=== PATIENT | male | born 2000 | race Caucasian/White ===

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

== ENCOUNTER → 2020-03-31 | Emergency (ER) | payer MEDICAID ==
[~2020-03-31] VITALS: Ht 172.7 cm; Wt 72.7 kg
[~2020-03-31] MED LIST: ATIVAN2 MG PO; COLACE 100100 MG/CAP PO; DEPAKOTE 250MG250 MG; MAG-G500 MG PO; MELATONIN1 MG PO; MIRALAX PA17 GM/Dose PO; TOFRANIL50 MG PO; VITAMIN B11000 MCG/M IM
[2020-03-31 23:06] VITALS: BP 124/84; TEMP 97.5
[2020-03-31 23:54] VITALS: PULSE 99
== END ==
LOC: COL.ER 23:01
DX: T42.1X1A Poisoning by iminostilbenes, accidental (unintentional), initial encounter (principal); T43.591A Poisoning by other antipsychotics and neuroleptics, accidental (unintentional), initial encounter; Z88.0 Allergy status to penicillin; Z88.8 Allergy status to other drugs, medicaments and biological substances

== ENCOUNTER 2020-07-26 11:33 | Emergency (ER) | payer MEDICAID ==
[~2020-07-26] VITALS: Ht 172.7 cm; Wt 68.2 kg
[2020-07-26 11:43] VITALS: TEMP 98.2
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
[2020-07-26 14:08] LABS: BASO % 0.7 % (0.0-2.0); EOS # 0.1 (0.0-0.7); GRAN # 3.8 (1.4-6.5); GRAN % 63.9 % (42.2-75.2); HEMATOCRIT 47.7 % (36.0-47.0); HEMOGLOBIN 16.2 g/dl (12.5-16.1); LYMPH # 1.6 (1.2-3.4); LYMPH % 27.4 % (20.0-51.0); MEAN CELL VOLUME 86 fl (80.0-95.0); MEAN CORPUSCULAR HEMOGLOBIN 29 pg (26.0-32.0); MEAN CORPUSCULAR HGB CONC 34 g/dl (33.0-37.0); MEAN PLATELET VOLUME 9.1 fl (7.4-10.4); MONO # 0.4 (0.1-0.6); MONO % 6.8 % (1.7-9.3); PLATELET COUNT 260 K/mm3 (130-400); RED BLOOD COUNT 5.54 M/mm3 (4.20-5.60); REDCELL DISTRIBUTION WIDTH-CV 12.9 % (11.5-14.5)
[2020-07-26 14:26] LABS: ALANINE AMINOTRANSFERASE 18 U/L (4-49); ALBUMIN 4.5 gm/dL (3.5-5.0); ALKALINE PHOSPHATASE 90 U/L (50-136); ANION GAP 7 mmol/L (7-16); AST,SGOT 26 U/L (15-37); BILIRUBIN,TOTAL 0.5 mg/dL (0.0-1.0); BLOOD UREA NITROGEN 5 mg/dL (9-20); C-REACTIVE PROTEIN 0.8 mg/dL (0.0-0.9); CALCIUM 10.1 mg/dL (8.4-10.2); CARBON DIOXIDE 30 mmol/L (22-30); CHLORIDE 102 mmol/L (98-107); CREATINE KINASE 139 U/L (55-170); GLUCOSE 83 mg/dL (74-106); POTASSIUM 3.8 mmol/L (3.4-5.0); SODIUM 140 mmol/L (137-145); TOTAL PROTEIN 7.7 gm/dL (6.4-8.2)
[2020-07-26 14:42] LABS: TROPONIN-I < 0.012 ng/mL (0.000-0.035)
[2020-07-26] MEDS ORDERED: MAGIC MOUTH PO (16:23)
[2020-07-26 16:36] VITALS: BP 124/86; PULSE 96
--- NOTE | 2020-07-26 17:32 | NUR ---
NELLY was contacted by deputy Denis who reported that there was nothing he could file a report on at this time. As these are not medically trained or certified individuals, "my hands are kind of tied." Deputy Denis reccomended NELLY filing with appropriate boards. Shilpa Price will file report with [facility] in the am. Mother contacted NELLY with concerns about her son being discharged without treatment for his oral inflammation. NELLY advocated for mother and ED physician was willing to prescribed Magic Mouthwash for patient. Please contact Evelyn Monday to notify her of PD findings as well as report going to [facility].
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
--- NOTE | 2020-07-29 14:10 | NUR ---
farmworker rice spoke with Leena Quach [phone], APS licensed master social worker, and provided additional information on patient's concerns. Worker arranged for ED associates, involved with patient during visit, to call her for an interview.
== END 2020-07-26 16:36 | disposition home or self-care (01) ==
LOC: COL.ER 11:33
PROVIDERS: Emergency Medicine
DX: K12.1 Other forms of stomatitis (principal); F84.0 Autistic disorder; G93.49 Other encephalopathy; Z88.0 Allergy status to penicillin; Z88.1 Allergy status to other antibiotic agents; Z88.4 Allergy status to anesthetic agent

== ENCOUNTER 2020-08-17 15:25 | Inpatient (IN) | payer MEDICAID ==
[2020-08-17] VITALS (111 sets, daily range): BP systolic 148; BP diastolic 74; PULSE 112; TEMP 97.5; O2SAT 75–100
[~2020-08-17] VITALS: Ht 170.2 cm; Wt 62.2 kg
[~2020-08-17 15:25] MED LIST changes: +MAGIC MOUTH PO
[2020-08-17 17:09] LABS: BASO % 0.4 % (0.0-2.0); EOS % 0.1 % (0-4.0); GRAN # 8.9 (1.4-6.5); GRAN % 78.4 % (42.2-75.2); HEMATOCRIT 46.4 % (36.0-47.0); HEMOGLOBIN 16.6 g/dl (12.5-16.1); LYMPH # 1.6 (1.2-3.4); LYMPH % 13.9 % (20.0-51.0); MEAN CELL VOLUME 82 fl (80.0-95.0); MEAN CORPUSCULAR HEMOGLOBIN 29 pg (26.0-32.0); MEAN CORPUSCULAR HGB CONC 36 g/dl (33.0-37.0); MEAN PLATELET VOLUME 9.7 fl (7.4-10.4); MONO # 0.8 (0.1-0.6); PLATELET COUNT 231 K/mm3 (130-400); RED BLOOD COUNT 5.67 M/mm3 (4.20-5.60); REDCELL DISTRIBUTION WIDTH-CV 12.4 % (11.5-14.5)
[2020-08-17 17:26] LABS: ALANINE AMINOTRANSFERASE 34 U/L (4-49); ALBUMIN 5.3 gm/dL (3.5-5.0); ALKALINE PHOSPHATASE 93 U/L (50-136); ANION GAP 20 mmol/L (7-16); AST,SGOT 91 U/L (15-37); BILIRUBIN,TOTAL 1.2 mg/dL (0.0-1.0); BLOOD UREA NITROGEN 21 mg/dL (9-20); CALCIUM 10.1 mg/dL (8.4-10.2); CARBON DIOXIDE 19 mmol/L (22-30); CHLORIDE 100 mmol/L (98-107); CREATININE, serum 1.18 (0.66-1.25); GLUCOSE 62 mg/dL (74-106); POTASSIUM 3.6 mmol/L (3.4-5.0); SALICYLATE 1.9 mg/dL; SODIUM 139 mmol/L (137-145); TOTAL PROTEIN 8.5 gm/dL (6.4-8.2)
[2020-08-17 17:27] LABS: ACETAMINOPHEN < 10 ug/mL (10-30); ALCOHOL(ethanol),MEDICAL < 10 mg/dL
[2020-08-17 17:32] LABS: CREATINE KINASE 2913 U/L (55-170)
[2020-08-17 17:58] LABS: TSH w REFLEX 0.674 uIU/mL (0.465-4.680)
--- NOTE | 2020-08-17 19:53 | NUR ---
Pt arrived to ICU room 6 via cart with Bridget ED RN, and security. Pt able to transfer from the cart to the ICU bed by himself. Unable to orient pt to room and call light system due to pt condition. Pt is resting in the bed but stirs easy to any stimulation. Lights turned off and extra nurses and security leave the room. Call light within reach.
[2020-08-18] VITALS (302 sets, daily range): BP systolic 110–150; BP diastolic 40–98; PULSE 67–116; TEMP 97.8–97.9; O2SAT 32–100
[2020-08-18 05:56] LABS: BASO % 0.7 % (0.0-2.0); EOS # 0.1 (0.0-0.7); EOS % 1.9 % (0-4.0); GRAN % 49.9 % (42.2-75.2); LYMPH # 2.3 (1.2-3.4); LYMPH % 38.4 % (20.0-51.0); MEAN CELL VOLUME 85 fl (80.0-95.0); MEAN CORPUSCULAR HGB CONC 35 g/dl (33.0-37.0); MEAN PLATELET VOLUME 9.8 fl (7.4-10.4); MONO # 0.5 (0.1-0.6); MONO % 8.9 % (1.7-9.3); PLATELET COUNT 145 K/mm3 (130-400); RED BLOOD COUNT 4.33 M/mm3 (4.20-5.60); REDCELL DISTRIBUTION WIDTH-CV 12.7 % (11.5-14.5)
[2020-08-18 05:57] LABS: HEMATOCRIT 36.6 % (36.0-47.0); HEMOGLOBIN 12.9 g/dl (12.5-16.1); MEAN CORPUSCULAR HEMOGLOBIN 30 pg (26.0-32.0)
[2020-08-18 06:06] LABS: CALCIUM 7.9 mg/dL (8.4-10.2); CREATININE, serum 0.63 (0.66-1.25); POTASSIUM 3.5 mmol/L (3.4-5.0)
--- NOTE | 2020-08-18 09:10 | NUR ---
No plan assessed yet. SW made contact with patient's biological mother Genevieve Leroy - from patients father. Mother reports that the patient resides at [facility] locally. Patient is reported to be Autisic and uses an Ipad to communicate. Patient has two pillowcase folder Yamile and Lorna . SW made contact with Allyson and she has agreed to bring the patient's Ipad to help with communication. Mother reports that patient can understand the face scale of pain and can answer by pointing to body parts and can read well. Patient is reported to have Dr. Wilson at [facility]. Medications are obtained through . Patient is reported to be fairly independent despite communication barriers. Patient is reported to be more agreessive lately, hair pulls, and hits. Mother is a [facility] [employer] SW located in [facility] and Father is a Hand [employer] in [place]. Fernandez diaz to follow for a plan.
--- NOTE | 2020-08-18 10:06 | NUR ---
Assessment completed, alert/ unable to assess orientation, patient is autistic and communication is difficult at this time, he does not appear to be in any acute pain or discomfort, currently resting quietly but does get agitation and becomes physically combative very abrubtly and without warning, CK >4k and I we are increasing IVF as he appears to be very dry, vital signs stable, heart RRR, I have spoke with his mom whom is his DPOA and discussed plan of care at this point in time, I am slowly titrating his Precedex gtt down as he does appear to be doing better than what was reported during this design sales consultant, I have called office to get an updated med list and waiting for call back, will continue to monitor patient closely back
--- NOTE | 2020-08-18 10:46 | NUR ---
First visit from the receiver setter. Patient was asleep, receiver setter prayed for patient while standing outside their door.
[2020-08-18] MEDS ORDERED: VITAMIN B12 781 TAB PO (11:13)
[2020-08-18] MEDS ORDERED: PRISTIQ 50 MG T50 MG PO (11:14)
[2020-08-18] MEDS ORDERED: ASPIRIN 32325 MG/TAB PO (11:18)
[2020-08-18] MEDS ORDERED: L-METHYLFOLATE7.5 MG PO (11:21)
[2020-08-18] MEDS ORDERED: OMEGA-3 1000 MG1 CAP (11:22)
[2020-08-18] MEDS ORDERED: OMEGA-3 FISH1000 MG PO (11:23)
[2020-08-18] MEDS ORDERED: VITAMIN C500 MG PO (11:24)
[2020-08-18] MEDS ORDERED: VITAMIN B-625 MG PO (11:24)
[2020-08-18] MEDS ORDERED: ATARAX 25MG25 MG/TAB PO (11:26)
--- NOTE | 2020-08-18 17:26 | NUR ---
RECEIVED REPORT FROM NOHEMY NORMAN. SEE GTT FLOWSHEET.
--- NOTE | 2020-08-18 17:35 | NUR ---
NOTIFIED DR BECKHAM ABOUT PT'S FSBS NOW. CHANGES IN IVF, SEE MAR.
--- NOTE | 2020-08-18 17:43 | NUR ---
Assessment completed, alert/ orientation is tough to as there is significant communication barrier, he does not appear to be in any acute pain or discomfort, his agitation is improved and I have been titrating his Precedex gtt down throughout the day, ordered him a general diet and he ate 100% of his meal and is taking PO without issues, FSBS changed to ac/hs and D5NS dsicontinued per orders, he is now having good urine output, rechecking CK this evening after having received aggressive IVF therapy, have spoke multiple times with his mother on the phone and discussed plan of care, bed alarm is set, will continue to monitor the patient
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
[2020-08-18 22:27] LABS: ARTERIAL BLD GAS O2 SATURATION 99.6 % (92-100); ARTERIAL BLD GAS TCO2 CT 22.5; ARTERIAL BLOOD GAS BASE EXCESS -1.4 (-2-2); ARTERIAL BLOOD GAS HCO3 21.5 meq/L (22-26); ARTERIAL BLOOD GAS PCO2 31.2 mmHg (35-45); ARTERIAL BLOOD GAS pH 7.46 (7.35-7.45)
[2020-08-19] VITALS (639 sets, daily range): BP systolic 95–125; BP diastolic 58–89; PULSE 53–77; TEMP 97.6–98.9; O2SAT 35–100
--- NOTE | 2020-08-19 05:00 | NUR ---
No sedation vacation performed as the pt has not been intubated for 24 hrs.
[2020-08-19 05:50] LABS: ARTERIAL BLOOD GAS pH 7.47 (7.35-7.45)
[2020-08-19 05:51] LABS: ARTERIAL BLD GAS O2 SATURATION 98.7 % (92-100); ARTERIAL BLOOD GAS HCO3 22.8 meq/L (22-26); ARTERIAL BLOOD GAS PCO2 31.8 mmHg (35-45)
--- NOTE | 2020-08-19 05:57 | NUR ---
PT HAS NOT BEEN INTUABTED FOR MORE THAN 24 HOURS THEREFORE NO WEANING TRIAL IS BEING DONE. PT IS ON CURRENT DOCUMENTED SETTINGS.
[2020-08-19 07:22] LABS: BASO % 0.6 % (0.0-2.0); EOS # 0.2 (0.0-0.7); EOS % 2.4 % (0-4.0); GRAN # 3.4 (1.4-6.5); GRAN % 51.8 % (42.2-75.2); HEMATOCRIT 37.8 % (36.0-47.0); HEMOGLOBIN 13.5 g/dl (12.5-16.1); LYMPH # 2.6 (1.2-3.4); LYMPH % 38.3 % (20.0-51.0); MEAN CELL VOLUME 83 fl (80.0-95.0); MEAN CORPUSCULAR HEMOGLOBIN 30 pg (26.0-32.0); MEAN CORPUSCULAR HGB CONC 36 g/dl (33.0-37.0); MEAN PLATELET VOLUME 9.8 fl (7.4-10.4); MONO # 0.4 (0.1-0.6); MONO % 6.6 % (1.7-9.3); PLATELET COUNT 147 K/mm3 (130-400); RED BLOOD COUNT 4.55 M/mm3 (4.20-5.60); REDCELL DISTRIBUTION WIDTH-CV 12.7 % (11.5-14.5)
[2020-08-19 07:30] LABS: ANION GAP 9 mmol/L (7-16); CARBON DIOXIDE 22 mmol/L (22-30); CHLORIDE 107 mmol/L (98-107); CREATININE, serum 0.49 (0.66-1.25); GLUCOSE 77 mg/dL (74-106); SODIUM 138 mmol/L (137-145)
--- NOTE | 2020-08-19 07:30 | NUR ---
REPORT RECEIVED FROM ANKITA RN
--- NOTE | 2020-08-19 07:38 | NUR ---
Bedside shift report given to NOHEMY Zepeda.
[2020-08-19 07:46] LABS: BLOOD UREA NITROGEN < 2 mg/dL (9-20)
[2020-08-19 07:48] LABS: CREATINE KINASE 2319 U/L (55-170); POTASSIUM 2.8 mmol/L (3.4-5.0)
--- NOTE | 2020-08-19 08:30 | NUR ---
DR. BARNHART IN ROOM. ORDERS RECEIVED.
--- NOTE | 2020-08-19 09:00 | NUR ---
MOTHER, CELIA CALLED FOR UPDATE AND TO VERIFY MEDICATION AND ALLERGIES.
--- NOTE | 2020-08-19 10:00 | NUR ---
DR. SNOW ROUNDS ON PATIENT. REQUESTS THAT RECORDS ARE OBTAINED FROM [facility] AND [facility].
--- NOTE | 2020-08-19 10:28 | NUR ---
Patient was intubated overnight and will remain intubated for today. Engineer Remote Control Diesel made contact with Thais at [facility] and requested copy of patient's Guardianship paperwork. Thais faxed a copy to the ICU and NELLY placed copy on patient's chart. Patient's parents, Evelyn and Pricila are designated. NELLY also faxed records requests to [facility] in [facility] (fax#[phone]) and [facility] (fax#[phone]). NOHEMY Zepeda advised that patient's mother plans to come to [place] to be with patient on Monday.
[2020-08-19 11:11] LABS: ARTERIAL BLD GAS O2 SATURATION 97.2 % (92-100); ARTERIAL BLD GAS TCO2 CT 24.7; ARTERIAL BLOOD GAS HCO3 23.5 meq/L (22-26); ARTERIAL BLOOD GAS PCO2 38.8 mmHg (35-45); ARTERIAL BLOOD GAS PO2 94.7 mmHg (80-100)
--- NOTE | 2020-08-19 13:00 | NUR ---
MOTHER CALLS FOR UPDATE AT THIS TIME.
[2020-08-19 13:28] LABS: MAGNESIUM 1.7 mg/dL (1.6-2.3); PHOSPHOROUS 3.2 mg/dL (2.5-4.5)
--- NOTE | 2020-08-19 14:30 | NUR ---
FATHER, EUSEBIO, CALLS FOR UPDATE AT THIS TIME.
--- NOTE | 2020-08-19 15:30 | NUR ---
DR. Toshia FABIAN HERE TO SEE PATIENT AND SPEAKS WITH MOTHER ON THE PHONE.
--- NOTE | 2020-08-19 17:30 | NUR ---
MOTHER CALLS FOR UPDATE AT THIS TIME.
--- NOTE | 2020-08-19 19:26 | NUR ---
REPORT GIVEN TO NOHEMY LUCIANO
--- NOTE | 2020-08-19 20:00 | NUR ---
Assessment complete. Pt is on the ventilator and is fighting. This nurse and Isaac RT, at bedside. Sedation increased and PRN ativan given at this time. Call light within reach.
[2020-08-20] VITALS (524 sets, daily range): BP systolic 97–125; BP diastolic 49–69; PULSE 64–91; TEMP 97.8–98.9; O2SAT 68–100
--- NOTE | 2020-08-20 02:45 | NUR ---
Pt began to meléndez the vent. Upon assessment there was water in the vent circuit. Water cleared from circuit and 2mg ativan IV given. Pt began to relax after ativan was administered. A few minutes later the pt began to meléndez the vent again. Upon entering the room to assess the pt was found to be seizing. Beryl button pushed. SONIA Hensley, notified of event. Additional 1mg ativan administered. Accu check found pt to have a low bg again.
[2020-08-20 03:17] LABS: BASO % 0.3 % (0.0-2.0); EOS # 0.2 (0.0-0.7); EOS % 1.6 % (0-4.0); GRAN # 7.2 (1.4-6.5); GRAN % 63.5 % (42.2-75.2); HEMATOCRIT 38.2 % (36.0-47.0); HEMOGLOBIN 13.2 g/dl (12.5-16.1); LYMPH # 3.2 (1.2-3.4); LYMPH % 28.4 % (20.0-51.0); MEAN CELL VOLUME 86 fl (80.0-95.0); MEAN CORPUSCULAR HEMOGLOBIN 30 pg (26.0-32.0); MEAN CORPUSCULAR HGB CONC 35 g/dl (33.0-37.0); MEAN PLATELET VOLUME 9.9 fl (7.4-10.4); MONO # 0.7 (0.1-0.6); MONO % 5.7 % (1.7-9.3); PLATELET COUNT 159 K/mm3 (130-400); RED BLOOD COUNT 4.43 M/mm3 (4.20-5.60); REDCELL DISTRIBUTION WIDTH-CV 13.1 % (11.5-14.5)
[2020-08-20 03:28] LABS: CERULOPLASMIN 23 mg/dL (20-60)
[2020-08-20 03:32] LABS: ALBUMIN 2.8 gm/dL (3.5-5.0); ANION GAP 5 mmol/L (7-16); CALCIUM 7.2 mg/dL (8.4-10.2); CARBON DIOXIDE 24 mmol/L (22-30); CHLORIDE 108 mmol/L (98-107); CREATINE KINASE 1106 U/L (55-170); CREATININE, serum 0.53 (0.66-1.25); GLUCOSE 97 mg/dL (74-106); PHOSPHOROUS 2.8 mg/dL (2.5-4.5); POTASSIUM 3.1 mmol/L (3.4-5.0); SODIUM 137 mmol/L (137-145)
[2020-08-20 03:36] LABS: BLOOD UREA NITROGEN < 2 mg/dL (9-20)
[2020-08-20 03:38] LABS: MAGNESIUM 1.7 mg/dL (1.6-2.3)
[2020-08-20 03:39] LABS: PHOSPHOROUS 2.8 mg/dL (2.5-4.5)
[2020-08-20 03:55] LABS: PROLACTIN 35.2 ng/mL (3.7-17.9)
--- NOTE | 2020-08-20 04:45 | NUR ---
Pt begins to wake up and fight the vent again. Called SONIA Hensley, and notified her of pt's increased LOC and current drip rates. Instructed to call Beryl for further recs. Called Beryl and spoke with Dr. Bailey. He states to begin to increase fentanyl gtt as needed up to a maximum of 400mcg/hr, which would max out the order parameters.
--- NOTE | 2020-08-20 05:00 | NUR ---
No sedation vacation performed this morning due to seizure activity this morning.
[2020-08-20 05:53] LABS: ARTERIAL BLD GAS O2 SATURATION 98.6 % (92-100); ARTERIAL BLD GAS TCO2 CT 26.1; ARTERIAL BLOOD GAS BASE EXCESS 1.7 (-2-2); ARTERIAL BLOOD GAS PCO2 35.3 mmHg (35-45); ARTERIAL BLOOD GAS pH 7.47 (7.35-7.45)
--- NOTE | 2020-08-20 07:28 | NUR ---
Bedside shift report given to NOHEMY Banks.
--- NOTE | 2020-08-20 09:41 | NUR ---
Blood Glucose sample taken from RT's arterial sample for ABG. Pt recieved 1/2 amp D50 this morning after fingersitck sample revealed 48mg/dL & PICC sample 113mg/dL
[2020-08-20 09:46] LABS: ARTERIAL BLD GAS O2 SATURATION 98.7 % (92-100); ARTERIAL BLD GAS TCO2 CT 25.5; ARTERIAL BLOOD GAS BASE EXCESS 1.4 (-2-2); ARTERIAL BLOOD GAS HCO3 24.5 meq/L (22-26); ARTERIAL BLOOD GAS PCO2 34.2 mmHg (35-45); ARTERIAL BLOOD GAS PO2 109.2 mmHg (80-100); ARTERIAL BLOOD GAS pH 7.47 (7.35-7.45)
--- NOTE | 2020-08-20 17:00 | NUR ---
At current sedation, pt able to occasionally wake up, move all extremities and move hands in upward fashion towards head - therefore vacation sedation not performed
[2020-08-20 18:30] LABS: INSULIN 23 uIU/mL (2-23)
[2020-08-21] VITALS (838 sets, daily range): BP systolic 97–117; BP diastolic 45–65; PULSE 56–110; TEMP 98.3–99.4; O2SAT 64–100
[2020-08-21 05:09] LABS: C-PEPTIDE,SERUM 4.02 ng/mL (0.80-3.90)
[2020-08-21 05:35] LABS: ARTERIAL BLD GAS O2 SATURATION 96.3 % (92-100); ARTERIAL BLD GAS TCO2 CT 27.8; ARTERIAL BLOOD GAS BASE EXCESS -0.6 (-2-2); ARTERIAL BLOOD GAS HCO3 26.2 meq/L (22-26); ARTERIAL BLOOD GAS PCO2 51.3 mmHg (35-45); ARTERIAL BLOOD GAS PO2 89.4 mmHg (80-100); ARTERIAL BLOOD GAS pH 7.33 (7.35-7.45)
[2020-08-21 06:18] LABS: HEMATOCRIT 41.3 % (36.0-47.0); HEMOGLOBIN 13.8 g/dl (12.5-16.1); MEAN CELL VOLUME 90 fl (80.0-95.0); MEAN CORPUSCULAR HEMOGLOBIN 30 pg (26.0-32.0); MEAN CORPUSCULAR HGB CONC 33 g/dl (33.0-37.0); PLATELET COUNT 164 K/mm3 (130-400); REDCELL DISTRIBUTION WIDTH-CV 13.5 % (11.5-14.5)
[2020-08-21 06:25] LABS: ALANINE AMINOTRANSFERASE 25 U/L (4-49); ALBUMIN 3.4 gm/dL (3.5-5.0); ALKALINE PHOSPHATASE 63 U/L (50-136); ANION GAP 7 mmol/L (7-16); AST,SGOT 29 U/L (15-37); BILIRUBIN,TOTAL < 0.1 mg/dL (0.0-1.0); BLOOD UREA NITROGEN 5 mg/dL (9-20); CALCIUM 8.6 mg/dL (8.4-10.2); CARBON DIOXIDE 27 mmol/L (22-30); CHLORIDE 106 mmol/L (98-107); CREATININE, serum 0.46 (0.66-1.25); GLUCOSE 189 mg/dL (74-106); MAGNESIUM 2.1 mg/dL (1.6-2.3); PHOSPHOROUS 4.8 mg/dL (2.5-4.5); POTASSIUM 4.4 mmol/L (3.4-5.0); SODIUM 140 mmol/L (137-145); TOTAL PROTEIN 6.7 gm/dL (6.4-8.2)
--- NOTE | 2020-08-21 07:15 | NUR ---
Report received from NOHEMY Molina. Patient care received.
[2020-08-21 07:52] LABS: BAND 25 % (0-10); LYMPHOCYTE 6 % (20.0-51.0); NEUTROPHILS 67 % (42.0-75.2); PLATELET ESTIMATE NORMAL (NORMAL)
--- NOTE | 2020-08-21 10:32 | NUR ---
Patient is still intubated at this time and mother, Evelyn is at bedside. NELLY introduced herself to Evelyn, who gave SW information about patient's history. Evelyn advised that at this time she is agreeable to have patient return to [facility] when he is medically cleared for discharge. Evelyn reports that she is also interested in [facility] in [place], [place] but believes they have a waitlist. NELLY contacted admissions at [facility] and left a message to inquire about the admissions process for Evelyn, who also reports that patient has been to [facility] as a minor. NELLY will continue to follow.
--- NOTE | 2020-08-21 15:00 | NUR ---
Patient's left arm noticibly more swollen than the right side. Hand is very puffy and firm to the touch and slightly warm. IV that was placed in this hand was removed; nothing running throught the IV at this time. Hospitalist notfied; ordered a venous duplex. Will continue to monitor.
--- NOTE | 2020-08-21 18:27 | NUR ---
SEDATION VACATION NOT PERFORMED PATIENT BECOMES VERY AGITATED; ATTEMPTS TO SIT UP; AND PULLING FORCEFULLY AT RESTRAINTS WITH SEDATION DECREASE.
--- NOTE | 2020-08-21 19:15 | NUR ---
Received report from NOHEMY Lara. Patient resting quietly in bed. Remains on ventilator; tolerating well. Occasionally stirs spontaneously but quickly falls back asleep. All vitals within normal limits. Drips and vent settings confirmed at bedside. Bed in lowest position, all alarms on. No further needs noted at this time.
--- NOTE | 2020-08-21 20:04 | NUR ---
During oral care paient became agitated; opened eyes and attempting to sit up. Lower extremities and hands shaking but also able to be moved independently on the bed. Dr. Bundy notified of shaking of extremities with agitation. No further orders at this time.
--- NOTE | 2020-08-21 23:15 | NUR ---
Contacted hospitalist, Mayra, regarding patient's BG > 200. Received orders to discontinue D10 fluids. To reassess blood sugar at 0400.
[2020-08-22] VITALS (727 sets, daily range): BP systolic 120–142; BP diastolic 43–84; PULSE 79–99; TEMP 98.1–99.3; O2SAT 83–100
[2020-08-22 04:22] LABS: BASO % 0.1 % (0.0-2.0); GRAN # 8.7 (1.4-6.5); GRAN % 88.6 % (42.2-75.2); LYMPH # 0.5 (1.2-3.4); LYMPH % 4.8 % (20.0-51.0); MEAN CELL VOLUME 88 fl (80.0-95.0); MEAN CORPUSCULAR HGB CONC 34 g/dl (33.0-37.0); MEAN PLATELET VOLUME 10.6 fl (7.4-10.4); MONO # 0.6 (0.1-0.6); MONO % 5.7 % (1.7-9.3); PLATELET COUNT 147 K/mm3 (130-400); RED BLOOD COUNT 3.91 M/mm3 (4.20-5.60); REDCELL DISTRIBUTION WIDTH-CV 13.6 % (11.5-14.5)
[2020-08-22 04:25] LABS: HEMATOCRIT 34.5 % (36.0-47.0); HEMOGLOBIN 11.6 g/dl (12.5-16.1); MEAN CORPUSCULAR HEMOGLOBIN 30 pg (26.0-32.0)
[2020-08-22 04:33] LABS: ALANINE AMINOTRANSFERASE 22 U/L (4-49); ALBUMIN 3.1 gm/dL (3.5-5.0); ALKALINE PHOSPHATASE 62 U/L (50-136); ANION GAP 5 mmol/L (7-16); AST,SGOT 25 U/L (15-37); BILIRUBIN,TOTAL < 0.1 mg/dL (0.0-1.0); BLOOD UREA NITROGEN 7 mg/dL (9-20); CALCIUM 7.9 mg/dL (8.4-10.2); CARBON DIOXIDE 27 mmol/L (22-30); CHLORIDE 107 mmol/L (98-107); CREATININE, serum 0.53 (0.66-1.25); GLUCOSE 145 mg/dL (74-106); PHOSPHOROUS 3.3 mg/dL (2.5-4.5); POTASSIUM 3.8 mmol/L (3.4-5.0); SODIUM 139 mmol/L (137-145); TOTAL PROTEIN 6.5 gm/dL (6.4-8.2); TRIGLYCERIDE 85 mg/dL
[2020-08-22 06:05] LABS: ARTERIAL BLD GAS O2 SATURATION 96.5 % (92-100); ARTERIAL BLD GAS TCO2 CT 23.1; ARTERIAL BLOOD GAS BASE EXCESS -1.8 (-2-2); ARTERIAL BLOOD GAS PCO2 34.5 mmHg (35-45); ARTERIAL BLOOD GAS PO2 85.3 mmHg (80-100); ARTERIAL BLOOD GAS pH 7.42 (7.35-7.45)
--- NOTE | 2020-08-22 15:00 | NUR ---
Patient restless in bed; Kicking off blankets and attempts to sit fully upright while pulling on restraints. Sat with patient to attempt to re-orient and calm down. Sedation increased. Will continue to monitor.
--- NOTE | 2020-08-22 16:50 | NUR ---
Dr. Javed at bedside to see patient. Mother at bedside. Discussed plan of care with mother. All questions and concerns addressed at this time.
--- NOTE | 2020-08-22 18:35 | NUR ---
Tolerating ventilator well; no concerns at this time.
[2020-08-23] VITALS (632 sets, daily range): BP systolic 109–164; BP diastolic 59–96; PULSE 77–105; TEMP 97.8–99.9; O2SAT 88–100
--- NOTE | 2020-08-23 05:00 | NUR ---
PATIENT RESTLESS ON CURRENT SEDATION. NO TITRATIONS AT THIS TIME.
[2020-08-23 05:26] LABS: BASO % 0.1 % (0.0-2.0); GRAN # 8.8 (1.4-6.5); GRAN % 84.7 % (42.2-75.2); HEMOGLOBIN 11.4 g/dl (12.5-16.1); LYMPH # 0.9 (1.2-3.4); LYMPH % 8.6 % (20.0-51.0); MEAN CELL VOLUME 88 fl (80.0-95.0); MEAN CORPUSCULAR HEMOGLOBIN 30 pg (26.0-32.0); MEAN CORPUSCULAR HGB CONC 34 g/dl (33.0-37.0); MEAN PLATELET VOLUME 10.6 fl (7.4-10.4); MONO # 0.6 (0.1-0.6); MONO % 5.5 % (1.7-9.3); PLATELET COUNT 182 K/mm3 (130-400); REDCELL DISTRIBUTION WIDTH-CV 13.7 % (11.5-14.5)
[2020-08-23 05:37] LABS: ALANINE AMINOTRANSFERASE 22 U/L (4-49); ALBUMIN 3.1 gm/dL (3.5-5.0); ALKALINE PHOSPHATASE 63 U/L (50-136); ANION GAP 7 mmol/L (7-16); AST,SGOT 22 U/L (15-37); BILIRUBIN,TOTAL < 0.1 mg/dL (0.0-1.0); BLOOD UREA NITROGEN 9 mg/dL (9-20); CARBON DIOXIDE 27 mmol/L (22-30); CHLORIDE 103 mmol/L (98-107); CREATININE, serum 0.51 (0.66-1.25); GLUCOSE 143 mg/dL (74-106); MAGNESIUM 2.2 mg/dL (1.6-2.3); PHOSPHOROUS 2.4 mg/dL (2.5-4.5); POTASSIUM 3.8 mmol/L (3.4-5.0); SODIUM 138 mmol/L (137-145); TOTAL PROTEIN 6.9 gm/dL (6.4-8.2)
[2020-08-23 05:47] LABS: HEMATOCRIT 33.4 % (36.0-47.0)
[2020-08-23 07:37] LABS: ARTERIAL BLD GAS O2 SATURATION 97.5 % (92-100); ARTERIAL BLOOD GAS BASE EXCESS 3.7 (-2-2); ARTERIAL BLOOD GAS HCO3 27.7 meq/L (22-26); ARTERIAL BLOOD GAS PO2 92.6 mmHg (80-100); ARTERIAL BLOOD GAS pH 7.46 (7.35-7.45)
--- NOTE | 2020-08-23 16:30 | NUR ---
Patient restless in bed; attempting to sit up and pulling hands up towards mouth. Attempted to calm down patient by re-orienting; not effective. Increased sedation at this time.
--- NOTE | 2020-08-23 19:37 | NUR ---
Sedation vacation not performed as patient restless and attempting to sit up and reaching up towards ET tube while currenlty sedated.
[2020-08-24] VITALS (540 sets, daily range): BP systolic 100–144; BP diastolic 62–97; PULSE 60–93; TEMP 97.5–101; O2SAT 92–100
--- NOTE | 2020-08-24 05:00 | NUR ---
PATIENT SEDATION AT SHIFT CHANGE WAS SUFFICIENT FOR NEURO EXAM. PT WAS SITTING UP AND PURPOSEFULLY REACHING FOR TUBE. HR WAS ALSO IN 130-140S SO I DID NOT DECREASE SEDATION FURTHER.
[2020-08-24 05:57] LABS: ARTERIAL BLD GAS TCO2 CT 31.6; ARTERIAL BLOOD GAS BASE EXCESS 5.9 (-2-2); ARTERIAL BLOOD GAS HCO3 30.3 meq/L (22-26); ARTERIAL BLOOD GAS PCO2 43.4 mmHg (35-45); ARTERIAL BLOOD GAS pH 7.46 (7.35-7.45)
[2020-08-24 06:20] LABS: HEMOGLOBIN 11.3 g/dl (12.5-16.1); MEAN CELL VOLUME 87 fl (80.0-95.0); MEAN CORPUSCULAR HEMOGLOBIN 30 pg (26.0-32.0); MEAN CORPUSCULAR HGB CONC 34 g/dl (33.0-37.0); MEAN PLATELET VOLUME 10.3 fl (7.4-10.4); PLATELET COUNT 169 K/mm3 (130-400); RED BLOOD COUNT 3.82 M/mm3 (4.20-5.60); REDCELL DISTRIBUTION WIDTH-CV 13.6 % (11.5-14.5)
[2020-08-24 06:31] LABS: ALANINE AMINOTRANSFERASE 26 U/L (4-49); ALBUMIN 3.1 gm/dL (3.5-5.0); ALKALINE PHOSPHATASE 66 U/L (50-136); ANION GAP 7 mmol/L (7-16); AST,SGOT 25 U/L (15-37); BILIRUBIN,TOTAL < 0.1 mg/dL (0.0-1.0); BLOOD UREA NITROGEN 14 mg/dL (9-20); CALCIUM 7.7 mg/dL (8.4-10.2); CARBON DIOXIDE 31 mmol/L (22-30); CHLORIDE 99 mmol/L (98-107); CREATININE, serum 0.43 (0.66-1.25); GLUCOSE 132 mg/dL (74-106); MAGNESIUM 2.4 mg/dL (1.6-2.3); POTASSIUM 3.9 mmol/L (3.4-5.0); SODIUM 136 mmol/L (137-145); TOTAL PROTEIN 7.2 gm/dL (6.4-8.2)
[2020-08-24 06:35] LABS: HEMATOCRIT 33.4 % (36.0-47.0)
--- NOTE | 2020-08-24 08:06 | NUR ---
AROUND 1999 PT BECAME AGITATED AND WAS ATTEMPTING TO SIT UP IN BED AND REACH FOR ETT. HR WAS SUSTAINED IN 130-140S AND PT WAS UNCONSOLABLE. INCREASED SEDATION UNTIL PT RESTED WITHOUT SIGNS OF ANXIETY/AGITATION. HR REMAINED IN 60S AFTER SEDATION WAS INCREASED SO SEDATION WAS SLOWLY TITRATED OFF TOLERATED. PRECEDEX ORDERED FOR ANXIETY AND TO REDUCE VOLUME OF FENTANYL NEEDED ONCE PT HR IS INCREASED CAN BE STARTED. LIANNE DOCTOR RECOMMENDED TO LEAVE FENTANYL AT 200MCG/HR WITH PRECEDEX FOR POSSIBLE ANALGESIC EFFECTS. AM REPORT GIVEN TO TYLER AND CARE RELINQUISHED AT THIS TIME.
[2020-08-24 08:27] LABS: BAND 10 % (0-10); NEUTROPHILS 73 % (42.0-75.2)
[2020-08-24 08:28] LABS: LYMPHOCYTE 15 % (20.0-51.0); PLATELET ESTIMATE NORMAL (NORMAL)
--- NOTE | 2020-08-24 13:41 | NUR ---
Head Swamper attended clinical rounds with the team. Patient remains intubated at this time. Dr. Bundy discussed transferring patient with Hospitalist. SW will continue to follow.
--- NOTE | 2020-08-24 19:09 | NUR ---
Report called to NOHEMY Wasserman at [facility]. Pt's mother called and updated on [facility] acceptance
--- NOTE | 2020-08-24 20:00 | NUR ---
Assessment complete. Pt is on the ventiltor. Spoke with mom on the phone; all questions answered. Pt repositioned in bed. CHARU Vail, working on arranging transportation to [facility]. Call light within reach.
--- NOTE | 2020-08-24 21:57 | NUR ---
Pt left via EMS at 2152. Called mother to update her and called [facility] transfer line and receiving nurse to update them.
== END 2020-08-24 23:09 | disposition short-term general hospital (02) | DRG 57 ==
LOC: COL.ER 15:25 → ICU 18:22 → COL.ER 18:22 → ICU 18:22
PROVIDERS: Emergency Medicine; Internal Medicine Pulmonary Disease; Nurse Practitioner Family; Physician Assistant; Psychiatry & Neurology Neurology; Student in an Organized Health Care Education/Training Program; ADMIT Student in an Organized Health Care Education/Training Program
PROC: 0BH17EZ Insertion of Endotracheal Airway into Trachea, Via Natural or Artificial Opening (ICD-10-PCS; 2020-08-18)
PROC: 5A1945Z Respiratory Ventilation, 24-96 Consecutive Hours (ICD-10-PCS; 2020-08-18)
PROC: 02HV33Z Insertion of Infusion Device into Superior Vena Cava, Percutaneous Approach (ICD-10-PCS; principal; 2020-08-19)
DX: G25.89 Other specified extrapyramidal and movement disorders (principal); M62.82 Rhabdomyolysis; I02.9 Rheumatic chorea without heart involvement; G93.49 Other encephalopathy; E87.3 Alkalosis; E72.12 Methylenetetrahydrofolate reductase deficiency; R45.1 Restlessness and agitation; E55.9 Vitamin D deficiency, unspecified; E87.6 Hypokalemia; E78.5 Hyperlipidemia, unspecified; F95.9 Tic disorder, unspecified; G40.909 Epilepsy, unspecified, not intractable, without status epilepticus; E16.2 Hypoglycemia, unspecified; I09.9 Rheumatic heart disease, unspecified; D52.9 Folate deficiency anemia, unspecified; R44.1 Visual hallucinations; G47.9 Sleep disorder, unspecified; Z86.16 Personal history of COVID-19
CPT/HCPCS: 99223-AI; 99233-AI; C1751; C9254; J0692; J1200; J1569; J1630; J1644; J2060; J2250; J2704; J2930; J3010; J3480; J7030; J7042; J7050; Q9967

== ENCOUNTER → 2020-08-19 | Outpatient (REF) ==
[~2020-08-19] MED LIST changes: +ASPIRIN 32325 MG/TA1 PO; +ASPIRIN 32325 MG/TAB PO; +ATARAX 25MG25 MG/TAB PO; +ATIVAN 1MG T1 MG/TAB PO; +D3-5050000 IU PO; +DEPAKOTE500 MG PO; +HALDOL 5MG T5 MG/TAB PO; +KLONOPIN 0.5MG0.5 MG PO; +L-METHYLFOLATE7.5 MG PO; +OMEGA-3 1000 MG1 CAP; +OMEGA-3 FISH1000 MG PO; +PRISTIQ 50 MG T50 MG PO; +SEROQUEL 2525 MG/TAB PO; +STOOL SOFTENER100 M2 PO; +VALIUM 5MG T5 MG/TAB PO; +VITAMIN B-625 MG PO; +VITAMIN B12 781 TAB PO; +VITAMIN C500 MG PO
[2020-08-19 06:20] LABS: HIV 1/2 Antibodies Non-Reactive; HIV-1p24 Antigen Non-Reactive
[2020-08-19 17:56] LABS: HEPATITIS B SURFACE ANTIBODY <2.0 (()); HEPATITIS C VIRUS ANTIBODY Negative (Negative)
== END ==
LOC: COL.LAB 05:08
PROVIDERS: Physician Assistant
DX: Z01.89 Encounter for other specified special examinations (principal)

== ENCOUNTER 2020-09-26 10:55 | Emergency (ER) | payer MEDICAID ==
[~2020-09-26] VITALS: Ht 172.7 cm; Wt 59.1 kg
[2020-09-26 10:55] VITALS: TEMP 98.8
[~2020-09-26 10:55] MED LIST changes: -ASPIRIN 32325 MG/TA1 PO; -ATIVAN 1MG T1 MG/TAB PO; -D3-5050000 IU PO; -DEPAKOTE500 MG PO; -HALDOL 5MG T5 MG/TAB PO; -KLONOPIN 0.5MG0.5 MG PO; -SEROQUEL 2525 MG/TAB PO; -STOOL SOFTENER100 M2 PO; -VALIUM 5MG T5 MG/TAB PO
[2020-09-26 12:09] LABS: COLLECTION METHOD CLEAN CATCH
[2020-09-26 12:14] LABS: BASO % 0.4 % (0.0-2.0); EOS # 0.1 (0.0-0.7); EOS % 1.4 % (0-4.0); GRAN # 2.3 (1.4-6.5); GRAN % 45.9 % (42.2-75.2); HEMATOCRIT 45.2 % (36.0-47.0); HEMOGLOBIN 15.7 g/dl (12.5-16.1); LYMPH # 2.2 (1.2-3.4); LYMPH % 44.4 % (20.0-51.0); MEAN CELL VOLUME 88 fl (80.0-95.0); MEAN CORPUSCULAR HEMOGLOBIN 31 pg (26.0-32.0); MEAN CORPUSCULAR HGB CONC 35 g/dl (33.0-37.0); MEAN PLATELET VOLUME 9.4 fl (7.4-10.4); MONO # 0.4 (0.1-0.6); MONO % 7.7 % (1.7-9.3); PLATELET COUNT 243 K/mm3 (130-400); RED BLOOD COUNT 5.12 M/mm3 (4.20-5.60); REDCELL DISTRIBUTION WIDTH-CV 14.8 % (11.5-14.5)
[2020-09-26 12:19] LABS: MUCOUS Present /lpf; PH 5 (5-8); SQUAMOUS EPITHELIAL 0-2 /hpf; URINE APPEARANCE Hazy; URINE BACTERIA Rare /hpf; URINE BILIRUBIN Negative (NEGATIVE); URINE BLOOD Negative (NEGATIVE); URINE COLOR Yellow; URINE GLUCOSE Negative (NEGATIVE); URINE KETONE 2+ (NEGATIVE); URINE LEUKOCYTE ESTERASE Negative (NEGATIVE); URINE NITRATE Negative (NEGATIVE); URINE PROTEIN(semi-quant) 1+ (NEGATIVE); URINE RBC 0-2 /hpf
[2020-09-26 12:23] LABS: ALANINE AMINOTRANSFERASE 24 U/L (4-49); ALBUMIN 4.7 gm/dL (3.5-5.0); ALKALINE PHOSPHATASE 92 U/L (50-136); ANION GAP 15 mmol/L (7-16); AST,SGOT 38 U/L (15-37); BILIRUBIN,TOTAL 0.4 mg/dL (0.0-1.0); BLOOD UREA NITROGEN 4 mg/dL (9-20); CALCIUM 10.2 mg/dL (8.4-10.2); CARBON DIOXIDE 22 mmol/L (22-30); CHLORIDE 102 mmol/L (98-107); CREATINE KINASE 147 U/L (55-170); CREATININE, serum 0.58 (0.66-1.25); GLUCOSE 76 mg/dL (74-106); POTASSIUM 3.9 mmol/L (3.4-5.0); SODIUM 139 mmol/L (137-145); TOTAL PROTEIN 8.1 gm/dL (6.4-8.2)
[2020-09-26 12:24] LABS: C-REACTIVE PROTEIN < 0.5 mg/dL (0.0-0.9)
[2020-09-26 15:24] LABS: STREP SCREEN NEGATIVE
[2020-09-26] MEDS ORDERED: KLONOPIN 0.5MG0.5 MG PO (16:16)
[2020-09-26] MEDS ORDERED: DEPAKOTE500 MG PO (16:18)
[2020-09-26] MEDS ORDERED: VALIUM 5MG T5 MG/TAB PO (16:25)
[2020-09-26] MEDS ORDERED: D3-5050000 IU PO (16:26)
[2020-09-26] MEDS ORDERED: STOOL SOFTENER100 M2 PO (16:27)
[2020-09-26] MEDS ORDERED: MIRALAX PA17 GM/Dose PO (16:31)
[2020-09-26] MEDS ORDERED: VITAMIN C500 MG PO (16:36)
[2020-09-26] MEDS ORDERED: L-METHYLFOLATE7.5 MG PO (16:37)
[2020-09-26] MEDS ORDERED: ASPIRIN 32325 MG/TA1 PO (16:37)
[2020-09-26 16:44] VITALS: BP 132/72; PULSE 78
== END 2020-09-26 16:44 | disposition home or self-care (01) ==
LOC: COL.ER 10:55
PROVIDERS: Nurse Practitioner
DX: F84.0 Autistic disorder (principal); Z79.899 Other long term (current) drug therapy
CPT/HCPCS: 99214; J7030

== ENCOUNTER 2020-10-07 12:07 | Emergency (ER) | payer MEDICAID ==
[~2020-10-07] VITALS: Ht 172.7 cm; Wt 54.5 kg
[2020-10-07 12:07] VITALS: TEMP 98.3
[~2020-10-07 12:07] MED LIST changes: +ASPIRIN 32325 MG/TA1 PO; +D3-5050000 IU PO; +DEPAKOTE500 MG PO; +KLONOPIN 0.5MG0.5 MG PO; +STOOL SOFTENER100 M2 PO; +VALIUM 5MG T5 MG/TAB PO
[2020-10-07 13:02] LABS: BASO % 0.7 % (0.0-2.0); EOS % 0.7 % (0-4.0); GRAN # 1.8 (1.4-6.5); GRAN % 39.5 % (42.2-75.2); HEMATOCRIT 44.5 % (36.0-47.0); HEMOGLOBIN 15.2 g/dl (12.5-16.1); LYMPH # 2.2 (1.2-3.4); LYMPH % 50.5 % (20.0-51.0); MEAN CELL VOLUME 90 fl (80.0-95.0); MEAN CORPUSCULAR HEMOGLOBIN 31 pg (26.0-32.0); MEAN CORPUSCULAR HGB CONC 34 g/dl (33.0-37.0); MEAN PLATELET VOLUME 9.4 fl (7.4-10.4); MONO # 0.4 (0.1-0.6); MONO % 8.4 % (1.7-9.3); PLATELET COUNT 257 K/mm3 (130-400); RED BLOOD COUNT 4.96 M/mm3 (4.20-5.60); REDCELL DISTRIBUTION WIDTH-CV 13.8 % (11.5-14.5)
[2020-10-07 13:05] LABS: COLLECTION METHOD CLEAN CATCH
[2020-10-07 13:21] LABS: ALBUMIN 4.5 gm/dL (3.5-5.0); BILIRUBIN,TOTAL 0.4 mg/dL (0.0-1.0); CREATININE, serum 0.66 (0.66-1.25); POTASSIUM 4.1 mmol/L (3.4-5.0); TOTAL PROTEIN 7.7 gm/dL (6.4-8.2)
[2020-10-07 13:23] LABS: MUCOUS Present /lpf; PH 6 (5-8); SQUAMOUS EPITHELIAL None Seen /hpf; URINE APPEARANCE Hazy; URINE BACTERIA None Seen /hpf; URINE BILIRUBIN Negative (NEGATIVE); URINE BLOOD Negative (NEGATIVE); URINE COLOR Yellow; URINE GLUCOSE Negative (NEGATIVE); URINE KETONE Trace (NEGATIVE); URINE LEUKOCYTE ESTERASE Negative (NEGATIVE); URINE NITRATE Negative (NEGATIVE); URINE PROTEIN(semi-quant) 1+ (NEGATIVE); URINE RBC 0-2 /hpf; URINE UROBILINOGEN Negative (NEGATIVE)
[2020-10-07 13:40] LABS: VALPROIC ACID (DEPAKENE) 73.1 ug/mL (50.0-100.0)
[2020-10-07 15:01] VITALS: BP 116/65
[2020-10-07 15:24] VITALS: PULSE 97
== END 2020-10-07 15:27 | disposition home or self-care (01) ==
LOC: COL.ER 12:07
PROVIDERS: Nurse Practitioner Primary Care
DX: R45.1 Restlessness and agitation (principal); F84.0 Autistic disorder; R44.1 Visual hallucinations; Z86.16 Personal history of COVID-19; Z79.899 Other long term (current) drug therapy
CPT/HCPCS: J1200; J1630; J2060

== ENCOUNTER 2020-10-09 14:19 | Emergency (ER) | payer MEDICAID ==
[~2020-10-09] VITALS: Ht 177.8 cm; Wt 63.6 kg
[2020-10-09 14:20] VITALS: TEMP 98
[2020-10-09 16:04] LABS: BASO % 0.7 % (0.0-2.0); EOS % 0.7 % (0-4.0); GRAN # 2.9 (1.4-6.5); GRAN % 51.3 % (42.2-75.2); HEMATOCRIT 44.6 % (36.0-47.0); HEMOGLOBIN 15.1 g/dl (12.5-16.1); LYMPH # 2.2 (1.2-3.4); LYMPH % 38.5 % (20.0-51.0); MEAN CELL VOLUME 90 fl (80.0-95.0); MEAN CORPUSCULAR HEMOGLOBIN 30 pg (26.0-32.0); MEAN CORPUSCULAR HGB CONC 34 g/dl (33.0-37.0); MEAN PLATELET VOLUME 9.2 fl (7.4-10.4); MONO # 0.5 (0.1-0.6); MONO % 8.6 % (1.7-9.3); PLATELET COUNT 236 K/mm3 (130-400); RED BLOOD COUNT 4.96 M/mm3 (4.20-5.60); REDCELL DISTRIBUTION WIDTH-CV 13.6 % (11.5-14.5)
[2020-10-09 16:06] LABS: ACETAMINOPHEN < 10 ug/mL (10-30); ALANINE AMINOTRANSFERASE 20 U/L (4-49); ALBUMIN 4.7 gm/dL (3.5-5.0); ALCOHOL(ethanol),MEDICAL < 10 mg/dL; ALKALINE PHOSPHATASE 75 U/L (50-136); ANION GAP 8 mmol/L (7-16); AST,SGOT 44 U/L (15-37); BILIRUBIN,TOTAL 0.2 mg/dL (0.0-1.0); BLOOD UREA NITROGEN 9 mg/dL (9-20); C-REACTIVE PROTEIN < 0.5 mg/dL (0.0-0.9); CALCIUM 10.3 mg/dL (8.4-10.2); CARBON DIOXIDE 30 mmol/L (22-30); CHLORIDE 102 mmol/L (98-107); CREATININE, serum 0.64 (0.66-1.25); GLUCOSE 80 mg/dL (74-106); POTASSIUM 3.9 mmol/L (3.4-5.0); SALICYLATE 2.4 mg/dL; SODIUM 140 mmol/L (137-145); TOTAL PROTEIN 7.8 gm/dL (6.4-8.2)
--- NOTE | 2020-10-09 16:20 | NUR ---
Lathe Operator responded to consult in the ED for patient who is here in police custody, brought in from [facility]. NELLY collaborated with [facility] who advised declined to screen patient as he is I/DD and they do not have staff who are qualified to screen I/DD. NELLY contacted Madeleine, Shipping Track Supervisor at the local CD[employer] ([employer]) who advised she has attempted to contact Danyell Armenta, Bike Shop Manager for [place] with no sucess. NELLY contacted Danyell (ph#[phone]) who advised that Thais, Advertising Strategist was on her way to lemon picker patient so he can return to [facility] as there is no reason to admit him to the hospital. NELLY spoke with [facility] who confirmed Thais is in route as she notified [facility] dispatch she was on her way. NELLY contacted patient's father, Pricila Guthrei (ph#[phone]) to notify him that patient would be returning to [facility]. Pricila advised that patient is on the waitlist for a longterm in [place] but that it could take months for him to get in. NELLY updated the RN and ED Physician.
--- NOTE | 2020-10-09 16:50 | NUR ---
Precision Machinist received a phone call from patient's mother, Evelyn who advised she is working her hardest to keep patient out of the ED but feels no one is listening to her. Evelyn advised that patient needs a valid psych screening to be completed. advised Evelyn that [facility] declined to do the screening as patient is I/DD. Evelyn is frustrated with this and stated she will be contacting [facility]. Evelyn reported that patient was just released from [facility] on 09/17/20 and stayed with her for a few days before returning to [facility]. Evelyn is working with Parag, Neon Sign Installer at [facility] to get patient into a prison in [place], but the home will not be ready for residents to move in for another 90 days. Evelyn advised she is also working with Case Management at [facility] to find placement in a Psychiatric Residential Treatment Facility and advised that patient was screened for this a couple weeks ago. Evelyn advised they should have received a response by now, but haven't. Evelyn had to end the call suddenly as she was receiving a phone call from the ED.
[2020-10-09 17:19] VITALS: BP 120/75; PULSE 104
== END 2020-10-09 17:18 | disposition home or self-care (01) ==
LOC: COL.ER 14:19
PROVIDERS: Nurse Practitioner
DX: F91.8 Other conduct disorders (principal); R45.1 Restlessness and agitation; F84.0 Autistic disorder
CPT/HCPCS: J1630; J2060

== ENCOUNTER 2020-11-11 15:05 | Emergency (ER) | payer MEDICAID ==
[~2020-11-11] VITALS: Ht 167.6 cm; Wt 56.8 kg
[2020-11-11 15:08] VITALS: TEMP 98.8
[2020-11-11 16:32] LABS: ALBUMIN 4.2 gm/dL (3.5-5.0); BILIRUBIN,TOTAL 0.1 mg/dL (0.0-1.0); CALCIUM 9.2 mg/dL (8.4-10.2); CREATININE, serum 0.49 (0.66-1.25); POTASSIUM 3.9 mmol/L (3.4-5.0); TOTAL PROTEIN 6.7 gm/dL (6.4-8.2)
[2020-11-11 16:32] LABS: COLLECTION METHOD CLEAN CATCH
[2020-11-11 16:33] LABS: BASO % 0.4 % (0.0-2.0); EOS # 0.1 (0.0-0.7); EOS % 1.1 % (0-4.0); GRAN # 5.1 (1.4-6.5); GRAN % 64.4 % (42.2-75.2); HEMATOCRIT 39.8 % (36.0-47.0); HEMOGLOBIN 13.7 g/dl (12.5-16.1); LYMPH # 2.2 (1.2-3.4); LYMPH % 27.8 % (20.0-51.0); MEAN CELL VOLUME 89 fl (80.0-95.0); MEAN CORPUSCULAR HEMOGLOBIN 31 pg (26.0-32.0); MEAN CORPUSCULAR HGB CONC 34 g/dl (33.0-37.0); MEAN PLATELET VOLUME 9.7 fl (7.4-10.4); MONO # 0.5 (0.1-0.6); MONO % 6.2 % (1.7-9.3); PLATELET COUNT 232 K/mm3 (130-400); RED BLOOD COUNT 4.47 M/mm3 (4.20-5.60); REDCELL DISTRIBUTION WIDTH-CV 12.7 % (11.5-14.5)
[2020-11-11] MEDS ORDERED: SEROQUEL 2525 MG/TAB PO (17:07)
[2020-11-11 17:11] LABS: PH 7 (5-8); SQUAMOUS EPITHELIAL None Seen /hpf; URINE APPEARANCE Clear; URINE BACTERIA None Seen /hpf; URINE BILIRUBIN Negative (NEGATIVE); URINE BLOOD Negative (NEGATIVE); URINE COLOR Colorless; URINE GLUCOSE Negative (NEGATIVE); URINE KETONE Negative (NEGATIVE); URINE LEUKOCYTE ESTERASE Negative (NEGATIVE); URINE NITRATE Negative (NEGATIVE); URINE PROTEIN(semi-quant) Negative (NEGATIVE); URINE RBC 0-2 /hpf; URINE UROBILINOGEN Negative (NEGATIVE); URINE WBC None Seen /hpf
[2020-11-11 22:14] VITALS: BP 134/71; PULSE 68
[2020-11-12] MEDS ORDERED: HALDOL 5MG T5 MG/TAB PO (18:26)
== END 2020-11-11 22:17 | disposition home or self-care (01) ==
LOC: COL.ER 15:05
PROVIDERS: Emergency Medicine
DX: R46.89 Other symptoms and signs involving appearance and behavior (principal); F84.0 Autistic disorder; R74.8 Abnormal levels of other serum enzymes
CPT/HCPCS: J1630

== ENCOUNTER 2020-11-12 10:41 | Emergency (ER) | payer MEDICAID ==
[~2020-11-12] VITALS: Wt 45.5 kg
[~2020-11-12 10:41] MED LIST changes: +SEROQUEL 2525 MG/TAB PO
[2020-11-12 11:49] LABS: BASO % 0.6 % (0.0-2.0); EOS # 0.1 (0.0-0.7); EOS % 1.1 % (0-4.0); GRAN # 3.9 (1.4-6.5); GRAN % 58.3 % (42.2-75.2); HEMATOCRIT 45.6 % (36.0-47.0); HEMOGLOBIN 15.2 g/dl (12.5-16.1); LYMPH # 2.1 (1.2-3.4); LYMPH % 31.9 % (20.0-51.0); MEAN CELL VOLUME 91 fl (80.0-95.0); MEAN CORPUSCULAR HEMOGLOBIN 30 pg (26.0-32.0); MEAN CORPUSCULAR HGB CONC 33 g/dl (33.0-37.0); MEAN PLATELET VOLUME 9.7 fl (7.4-10.4); MONO # 0.5 (0.1-0.6); MONO % 7.9 % (1.7-9.3); PLATELET COUNT 249 K/mm3 (130-400); REDCELL DISTRIBUTION WIDTH-CV 12.9 % (11.5-14.5)
[2020-11-12 11:52] LABS: ALANINE AMINOTRANSFERASE 21 U/L (4-49); ALBUMIN 4.6 gm/dL (3.5-5.0); ALKALINE PHOSPHATASE 75 U/L (50-136); ANION GAP 9 mmol/L (7-16); AST,SGOT 42 U/L (15-37); BILIRUBIN,TOTAL 0.2 mg/dL (0.0-1.0); BLOOD UREA NITROGEN 10 mg/dL (9-20); CALCIUM 9.7 mg/dL (8.4-10.2); CARBON DIOXIDE 29 mmol/L (22-30); CHLORIDE 104 mmol/L (98-107); CREATININE, serum 0.59 (0.66-1.25); GLUCOSE 123 mg/dL (74-106); POTASSIUM 4.7 mmol/L (3.4-5.0); SALICYLATE 1.4 mg/dL; SODIUM 142 mmol/L (137-145); TOTAL PROTEIN 7.4 gm/dL (6.4-8.2)
[2020-11-12 12:06] LABS: ACETAMINOPHEN < 10 ug/mL (10-30); ALCOHOL(ethanol),MEDICAL < 10 mg/dL
[2020-11-12 14:10] LABS: COLLECTION METHOD CLEAN CATCH
[2020-11-12 14:44] LABS: PH 7 (5-8); SQUAMOUS EPITHELIAL None Seen /hpf; URINE APPEARANCE Clear; URINE BACTERIA None Seen /hpf; URINE BILIRUBIN Negative (NEGATIVE); URINE BLOOD Negative (NEGATIVE); URINE COLOR Yellow; URINE GLUCOSE Negative (NEGATIVE); URINE KETONE Negative (NEGATIVE); URINE LEUKOCYTE ESTERASE Negative (NEGATIVE); URINE NITRATE Negative (NEGATIVE); URINE PROTEIN(semi-quant) Negative (NEGATIVE); URINE RBC 0-2 /hpf; URINE UROBILINOGEN Negative (NEGATIVE); URINE WBC 0-2 /hpf
[2020-11-12 15:55] LABS: TRICYCLIC ANTIDEPRESS URINE NEGATIVE
[2020-11-12] MEDS ORDERED: HALDOL 5MG T5 MG/TAB PO (18:26)
[2020-11-12 18:48] VITALS: BP 118/64; PULSE 74; TEMP 98.3
== END 2020-11-12 18:51 | disposition home or self-care (01) ==
LOC: COL.ER 10:41
PROVIDERS: Nurse Practitioner Primary Care
DX: R45.6 Violent behavior (principal); Z86.16 Personal history of COVID-19; Z20.822 Contact with and (suspected) exposure to COVID-19

== ENCOUNTER 2020-12-15 09:17 | Emergency (ER) | payer MEDICAID ==
[~2020-12-15] VITALS: Ht 167.6 cm; Wt 52.3 kg
[~2020-12-15 09:17] MED LIST changes: +HALDOL 5MG T5 MG/TAB PO
[2020-12-15 10:09] VITALS: TEMP 97.6
[2020-12-15 10:43] VITALS: BP 118/79
[2020-12-15 10:44] LABS: BASO % 0.8 % (0.0-2.0); EOS # 0.1 (0.0-0.7); EOS % 2.2 % (0-4.0); GRAN # 1.9 (1.4-6.5); GRAN % 52.1 % (42.2-75.2); HEMATOCRIT 45.2 % (36.0-47.0); HEMOGLOBIN 15.6 g/dl (12.5-16.1); LYMPH # 1.4 (1.2-3.4); LYMPH % 37.5 % (20.0-51.0); MEAN CELL VOLUME 86 fl (80.0-95.0); MEAN CORPUSCULAR HEMOGLOBIN 30 pg (26.0-32.0); MEAN CORPUSCULAR HGB CONC 35 g/dl (33.0-37.0); MEAN PLATELET VOLUME 9.3 fl (7.4-10.4); MONO # 0.3 (0.1-0.6); MONO % 7.4 % (1.7-9.3); PLATELET COUNT 225 K/mm3 (130-400); RED BLOOD COUNT 5.27 M/mm3 (4.20-5.60); REDCELL DISTRIBUTION WIDTH-CV 12.1 % (11.5-14.5)
[2020-12-15] MEDS ORDERED: ATIVAN 1MG T1 MG/TAB PO (10:47)
[2020-12-15 10:54] LABS: ALANINE AMINOTRANSFERASE 20 U/L (4-49); ALBUMIN 4.7 gm/dL (3.5-5.0); ALKALINE PHOSPHATASE 72 U/L (50-136); ANION GAP 11 mmol/L (7-16); AST,SGOT 25 U/L (15-37); BILIRUBIN,TOTAL 0.8 mg/dL (0.0-1.0); BLOOD UREA NITROGEN 7 mg/dL (9-20); CALCIUM 9.5 mg/dL (8.4-10.2); CARBON DIOXIDE 28 mmol/L (22-30); CHLORIDE 102 mmol/L (98-107); CREATININE, serum 0.71 (0.66-1.25); GLUCOSE 91 mg/dL (74-106); SALICYLATE 3.1 mg/dL; SODIUM 140 mmol/L (137-145); TOTAL PROTEIN 7.8 gm/dL (6.4-8.2)
[2020-12-15 10:57] LABS: ACETAMINOPHEN < 10 ug/mL (10-30); ALCOHOL(ethanol),MEDICAL < 10 mg/dL
[2020-12-15 11:37] LABS: COLLECTION METHOD CLEAN CATCH
[2020-12-15 11:41] LABS: TSH w REFLEX 0.633 uIU/mL (0.350-4.940)
[2020-12-15 11:48] LABS: MUCOUS Present /lpf; PH 6 (5-8); SQUAMOUS EPITHELIAL 0-2 /hpf; URINE APPEARANCE Hazy; URINE BACTERIA Rare /hpf; URINE BILIRUBIN Negative (NEGATIVE); URINE BLOOD Negative (NEGATIVE); URINE COLOR Yellow; URINE GLUCOSE Negative (NEGATIVE); URINE KETONE Negative (NEGATIVE); URINE LEUKOCYTE ESTERASE Negative (NEGATIVE); URINE NITRATE Negative (NEGATIVE); URINE PROTEIN(semi-quant) 1+ (NEGATIVE); URINE RBC 0-2 /hpf
[2020-12-15 12:03] LABS: TRICYCLIC ANTIDEPRESS URINE NEGATIVE
[2020-12-15 14:46] VITALS: PULSE 90
== END 2020-12-15 14:47 | disposition home or self-care (01) ==
LOC: COL.ER 09:17
PROVIDERS: Nurse Practitioner Primary Care
DX: R46.89 Other symptoms and signs involving appearance and behavior (principal); F84.0 Autistic disorder; Z79.899 Other long term (current) drug therapy